=== PATIENT | male | born 1955 | race Caucasian/White ===

== ENCOUNTER 2016-12-07 18:59 | Inpatient (IN) ==
--- NOTE | 2016-12-07 19:37 | Emergency Department Note ---
Disposition Clinical Impression: Abscess, Cellulitis Disposition: Admitted As Inpatient Condition: Fair Time of Disposition: 19:58 (gil amparo) Lower Extremity Injury HPI - General Chief Complaint: ED Extremity Injury, Lower Stated Complaint: abcess to left lower leg Time Seen by Provider: 12/07/16 19:20 Source: patient Mode of arrival: ambulatory Limitations: no limitations Nursing Notes Reviewed: Yes Vital Signs Reviewed: Yes - History of Present Illness HPI Narrative: Seen 3 days ago in the emergency room for same twice of the lower leg seen last night at the local urgent care was called to the ER is to be transferred up here that the patient never arrived as a result patient now presents here to the emergency room with a red hot swollen left ankle with a large $0.50 piece purplish ecchymotic area to the medial aspect of the left ankle unable to bear weight with swelling and edema up towards the knee he has told me that he is taking Bactrim and Keflex but according to the records that Cipro and clindamycin as a result he is here for evaluation of the abscess of the lower leg which appears to be failing outpatient therapy he has pain with weightbearing denies numbness tingling has edema unable to flex at the ankle denies any knee or hip pain denies any additional complaints with further review of systems Pt Subjective Complaint: ankle injury Injury location: Left ankle (5) Mechanism of Injury: unknown Context: other (started with cellulitis of the ankle) Place: home Pain Severity: severe Pain Scale: 10 Improves with: nothing Worsens with: weight bearing, movement, palpation Associated symptoms: Reports: unable to bear weight, swelling, other (ecchymosis ) Treatments prior to arrival: dressing, other (antibiotics) - Related Data Home Medications Medication Instructions Recorded Confirmed Atenolol [Tenormin] 50 mg PO DAILY 01/09/16 12/04/16 Buspirone HCl [Buspar] 15 mg PO BID 01/09/16 12/04/16 Clopidogrel [Plavix] 75 mg PO DAILY 01/09/16 12/04/16 Dicyclomine 20 mg PO TID 01/09/16 12/04/16 Duloxetine HCl [Cymbalta] 60 mg PO DAILY 01/09/16 12/04/16 Lansoprazole [Prevacid] 30 mg PO DAILY 01/09/16 12/04/16 Lisinopril [Zestril] 40 mg PO DAILY 01/09/16 12/04/16 Warfarin [Coumadin] 2 tab PO DAILY 01/09/16 12/04/16 Montelukast [Singulair] 10 mg PO QID 12/04/16 12/04/16 Nitroglycerin [Nitrostat] 0.4 mg SL Q3-5MIN PRN 12/04/16 12/04/16 Oxycodone HCl/Acetaminophen 1 each PO QID 12/04/16 12/04/16 [Percocet 10-325 mg Tablet] Tiotropium [Spiriva] 18 mcg IH 0700 12/04/16 12/04/16 Previous Rx's Medication Instructions Recorded Ciprofloxacin [Cipro] 500 mg PO BID #20 tablet 12/04/16 Clindamycin HCl [Cleocin HCl] 150 mg PO QID #40 capsule 12/04/16 OxyCODONE/APAP 5/325 [Percocet 1 each PO Q4HR PRN #20 tablet 12/04/16 5/325 MG] Allergies Allergy/AdvReac Type Severity Reaction Status Date / Time sulfamethoxazole AdvReac Weakness Verified 12/07/16 19:12 [From Bactrim] trimethoprim [From Bactrim] AdvReac Weakness Verified 12/07/16 19:12 All systems ED: reviewed and negative except as stated. Constitutional: Denies: fever, chills, weakness Eyes: Denies: vision change ENT ED: Denies: ear pain, throat pain Cardiovascular: Denies: chest pain Respiratory: Denies: cough, dyspnea, wheezes Gastrointestinal: Denies: abdominal pain, melena Genitourinary: Denies: urgency, dysuria Musculoskeletal: Reports: joint swelling Integumentary: Reports: lesions, other (ecchymosis) Neurological: Reports: abnormal gait (due to pain). Denies: headache, weakness Psychiatric: Denies: anxiety Endocrine: Denies: fatigue Hematological/Lymphatic: Reports: easy bleeding, easy bruising (due t anticoagulation meds) Allergic/Immunologic: Denies: facial swelling Past Medical History - Past Medical History Attestation: Yes The following information was validated with the patient. Source: patient, old records reviewed, nursing notes reviewed Medical history: Reports: COPD, CVA, DVT, diabetes, GERD, hypertension, renal disease, other Surgical history: Reports: appendectomy, cancer surgery (Stomach and esophagus) , orthopedic, other (Back surgery 3), other (Tonsillectomy, right kidney surgery) Psychiatric history: Reports: no psych history - Social History Smoking Status: Current every day smoker Smokeless Tobacco Status: No Alcohol use: Reports: none Drug use: Reports: none Physical Exam - General Limitations: no limitations General appearance: alert, in no apparent distress, anxious - Head Head exam: atraumatic, normocephalic, normal inspection - Eye Eye exam: Present: normal appearance, PERRL, EOMI - ENT ENT exam: normal exam, normal oropharynx, mucous membranes moist, TM's normal bilaterally, normal external ear exam - Neck Neck exam: Present: normal inspection, full ROM, trachea midline - Chest Chest inspection: Present: normal inspection, symmetric chest wall rise - Respiratory Respiratory exam: Present: normal lung sounds bilaterally - Cardiovascular Cardiovascular exam: Present: regular rate, normal rhythm, normal heart sounds - Abdominal Exam Abdominal exam: Present: soft, Non-Tender, normal bowel sounds. Absent: mass, pulsatile mass - Expanded Upper Extremity Exam Shoulder exam: Present: normal inspection, full ROM Arm exam: Present: normal inspection, full ROM Elbow exam: Present: normal inspection, full ROM Forearm/Wrist exam: Present: normal inspection, full ROM Hand exam: Present: normal inspection, full ROM Vascular exam: Normal: capillary refill, radial pulse - Expanded Lower Extremity Exam Hip/Pelvis exam: Present: normal inspection, full ROM Upper leg exam: Present: normal inspection, full ROM 1 - Cellulitis with pitting edema of the foot to just at the ankle mortise Knee exam: Present: normal inspection, full ROM Lower leg exam: Present: normal inspection, tenderness, swelling, ecchymosis. Absent: Homans' sign Ankle exam: Present: normal inspection, tenderness, swelling, ecchymosis, other (E centimeter lesion on the inner aspect of the left ankle with partial erosion of the epidermal layer extending down into the dermal layer but the tissue still intact oozing but no active bleeding little purulent abscess is starting to develop in the within the tissue) 1 - 3cm circular abscess to the inner aspect of the lower leg Foot/toe exam: Present: normal inspection, tenderness, swelling, ecchymosis Neurovascular/Tendon exam: Present: normal capillary refill, sensory deficit ( Intact to touch but was unable to discriminate between sharp and dull due to edema range of motion in the ankle. Minimal once the ankle was drained able to fully flex the ankle dorsiflexion plantar flexion with marked improvement with the range of motion). Absent: motor deficit, tendon deficit Gait: unable to bear weight - Back Exam Back exam: Present: normal inspection, full ROM - Neurological Exam Neurological exam: Present: alert, oriented X3, CN II-XII intact - Psychiatric Psychiatric exam: Present: normal affect, normal mood - Skin Skin exam: Present: warm, dry, intact, normal color Course Course Narrative: Patient seen and examined patient was advised he needs to be hospitalized due to the seriousness of the illness laboratory data was obtained including blood cultures area was then cleansed with chlorhexidine prep with the area with chlorhexidine prep he was then anesthetized with 10 mL of 1% lidocaine a small surgical incision of approximately 2 cm was made along the long axis of the leg and a half centimeter incision both anterior and posterior direction along that laceration site then opening about 1 cm allow the large amount of purulent material approximately 40 mL's of purulent blood clotted foul-smelling material coming from within the wound expressed to approximately 60 mL stone minimal oozing from the site upon completion of the drainage patient was then asked to do for range of motion which then showed that he had almost complete range of motion back at this point with minimal discomfort the pitting edema was actually resolving fairly quickly around the ankle and tolerating discomfort much better patient had an Allevyn dressing on after packed with approximately 8 inches of iodoform gauze patient transferred to [facility] spoke with Dr. Solomon who is in agreement with clindamycin and vancomycin and at this point transfer may occur tomorrow if showing no improvement to [place] (ideally) but if unable to [place] would be second choice Vital Signs Temperature 97.1 F L 12/07/16 19:02 Pulse Rate 70 12/07/16 19:02 Respiratory Rate 20 12/07/16 19:02 Blood Pressure 141/83 12/07/16 19:02 Temperature 100.1 F H 12/07/16 21:01 Pulse Rate 71 12/07/16 21:01 Respiratory Rate 16 12/07/16 21:01 Blood Pressure 118/69 12/07/16 21:01 O2 Sat by Pulse Oximetry 94 L 12/07/16 21:01 Oxygen Delivery Oxygen Delivery Room Air Procedures - Abscess I/D Site: lower extremity Side (if applicable): left Sedation/analgesia: other (dilaudid 1mg IV) Local Anesthetic: lidocaine 1% Amount of Anesthesia Used (mL): 10 Technique: incised with #11 blade Amount of fluid: 40 (expressed to 60ml) Irrigation: Yes (saline) Packing used?: iodoform Complications: pain, bleeding Extremity Injury, Lower - MDM Narrative Medical decision making narrative: abscess and failed out pt therapy due to cipro and low dose clindamycin area according to reports and pt was cellulitis light erythema on the 8th signifigant change this past 48 hours - Medical Records Medical records reviewed: Yes I reviewed the patient's medical records. - Lab Data Lab results reviewed: Yes I reviewed the patient's lab results. Result diagrams: 12/07/16 19:57 12/07/16 19:57 Lab Results 12/07/16 12/07/16 12/07/16 Range/Units 19:57 19:57 19:57 WBC 16.2 H (4.3-11.1) K/mcL RBC 5.12 (4.19-5.50) M/mcL Hgb 14.5 (12.9-16.9) g/dL Hct 44.4 (37.5-50.1) % MCV 86.7 (83.0-100.0) fL MCH 28.3 (28.0-33.3) pg MCHC 32.7 (31.6-35.5) g/dL RDW 15.1 H (11.5-14.5) % Plt Count 328 (140-400) K/mcL MPV 10.0 (9.4-12.4) fL Immature Gran % 0.6 (0-4) % Seg Neutrophils % 64.5 % Lymphocytes % 23.0 % Monocytes % 8.9 % Eosinophils % 2.2 % Basophils % 0.8 % Neutrophils # 10.5 H (1.6-8.9) K/mcL Lymphocytes # 3.7 (0.6-4.6) K/mcL Monocytes # 1.4 H (0.0-1.3) K/mcL Eosinophils # 0.4 (0.0-0.6) K/mcL Basophils # 0.1 (0.0-0.2) K/mcL PT (9.4-12.1) Seconds INR APTT 23.3 L (26.0-36.0) Seconds VBG Lactic Acid (0.5-2.2) mmol/L Sodium 136 (136-145) mEq/L Potassium 3.9 (3.5-4.5) mEq/L Chloride 105 (98-109) mEq/L Carbon Dioxide 19 (19-29) mEq/L BUN 30 H (8-26) mg/dL Creatinine 1.61 H (0.72-1.25) mg/dL Est GFR ( Amer) 53 L (> 60) Est GFR (Non-Af Amer) 44 L (> 60) BUN/Creatinine Ratio 19 (6-26) Glucose 100 H (70-99) mg/dL Calculated Osmolality 288 (280-300) Calcium 8.9 (8.6-10.8) mg/dL Total Bilirubin 0.7 (0.2-1.2) mg/dL AST 25 (5-34) Units/L ALT 19 (0-55) Units/L Alkaline Phosphatase 115 (38-126) Units/L Serum Total Protein 8.1 (6.0-8.3) g/dL Albumin 3.3 L (3.5-5.0) g/dL Globulin 4.8 H (2.4-3.5) g/dL Albumin/Globulin Ratio 0.7 L (1.1-2.2) 12/07/16 12/07/16 Range/Units 19:57 19:57 WBC (4.3-11.1) K/mcL RBC (4.19-5.50) M/mcL Hgb (12.9-16.9) g/dL Hct (37.5-50.1) % MCV (83.0-100.0) fL MCH (28.0-33.3) pg MCHC (31.6-35.5) g/dL RDW (11.5-14.5) % Plt Count (140-400) K/mcL MPV (9.4-12.4) fL Immature Gran % (0-4) % Seg Neutrophils % % Lymphocytes % % Monocytes % % Eosinophils % % Basophils % % Neutrophils # (1.6-8.9) K/mcL Lymphocytes # (0.6-4.6) K/mcL Monocytes # (0.0-1.3) K/mcL Eosinophils # (0.0-0.6) K/mcL Basophils # (0.0-0.2) K/mcL PT 15.5 H (9.4-12.1) Seconds INR 1.4 APTT (26.0-36.0) Seconds VBG Lactic Acid 2.2 (0.5-2.2) mmol/L Sodium (136-145) mEq/L Potassium (3.5-4.5) mEq/L Chloride (98-109) mEq/L Carbon Dioxide (19-29) mEq/L BUN (8-26) mg/dL Creatinine (0.72-1.25) mg/dL Est GFR ( Amer) (> 60) Est GFR (Non-Af Amer) (> 60) BUN/Creatinine Ratio (6-26) Glucose (70-99) mg/dL Calculated Osmolality (280-300) Calcium (8.6-10.8) mg/dL Total Bilirubin (0.2-1.2) mg/dL AST (5-34) Units/L ALT (0-55) Units/L Alkaline Phosphatase (38-126) Units/L Serum Total Protein (6.0-8.3) g/dL Albumin (3.5-5.0) g/dL Globulin (2.4-3.5) g/dL Albumin/Globulin Ratio (1.1-2.2) - Radiology Data Radiology results reviewed: Yes I reviewed the patient's radiology results. Critical Care Time Critical Care Time: No
[2016-12-07] MEDS ORDERED: Vancomycin 1,000 MG in D5% in Water 250 ML IVPB ONE (19:38)
[2016-12-07] MEDS ORDERED: Clindamycin 600 MG/50 ML 600 MG/50 ML IV.SOLN IVPB STA ×2 (19:38→20:36)
[2016-12-07] MEDS ORDERED: 0.9 % Sodium Chloride 1,000 ML IVC ONE (19:38)
[2016-12-07] MEDS ORDERED: Ondansetron 4 MG/2 ML VIAL IVP ONE (19:39)
[2016-12-07] MEDS ORDERED: *HR* HYDROmorphone (PF) 1 MG/ML SYRINGE IVP ONE (19:39)
[2016-12-07 20:04] LABS: Basophils # 0.1 K/mcL (0.0-0.2); Basophils % 0.8 %; Eosinophils # 0.4 K/mcL (0.0-0.6); Eosinophils % 2.2 %; Hematocrit 44.4 % (37.5-50.1); Hemoglobin 14.5 g/dL (12.9-16.9); Immature Granulocytes % 0.6 % (0-4); Lymphocytes # 3.7 K/mcL (0.6-4.6); Mean Corpuscular HGB Conc 32.7 g/dL (31.6-35.5); Mean Corpuscular Hemoglobin 28.3 pg (28.0-33.3); Mean Corpuscular Volume 86.7 fL (83.0-100.0); Monocytes % 8.9 %; Neutrophils # 10.5 K/mcL (1.6-8.9); Platelet Count 328 K/mcL (140-400); Red Blood Count 5.12 M/mcL (4.19-5.50); Red Cell Distribution Width 15.1 % (11.5-14.5); Segmented Neutrophils % 64.5 %
[2016-12-07 20:06] LABS: Monocytes # 1.4 K/mcL (0.0-1.3)
[2016-12-07 20:09] LABS: INR 1.4; Prothrombin Time 15.5 Seconds (9.4-12.1)
[2016-12-07 20:21] LABS: Albumin 3.3 g/dL (3.5-5.0); Albumin/Globulin Ratio 0.7 (1.1-2.2); Bilirubin,Total 0.7 mg/dL (0.2-1.2); Calcium 8.9 mg/dL (8.6-10.8); Globulin 4.8 g/dL (2.4-3.5); Potassium 3.9 mEq/L (3.5-4.5); Total Protein 8.1 g/dL (6.0-8.3)
[2016-12-07] MEDS ORDERED: Ondansetron 4 MG/2 ML VIAL IVP PRN (20:36)
[2016-12-07] MEDS ORDERED: 0.9 % Sodium Chloride 1,000 ML IVC SCH (20:36)
[2016-12-07] MEDS ORDERED: D5% in Water 1,000 ML IV PRN (20:36)
[2016-12-07] MEDS ORDERED: Dextrose Gel 15 GM PO PRN ×2 (20:36)
[2016-12-07] MEDS ORDERED: Nitroglycerin 0.4 MG TAB.SUBL SL PRN (20:36)
[2016-12-07] MEDS ORDERED: Naloxone 0.4 MG/ML INJ IVP PRN (20:36)
[2016-12-07] MEDS ORDERED: *HR* Dextrose 50 % in Water (Syg) 50 ML SYRINGE IVP PRN (20:36)
[2016-12-07] MEDS: 0.9 % Sodium Chloride 1,000 ML IVC SCH ×2 (22:04→22:08)
[2016-12-07] MEDS: *HR* OxyCODONE Immed Rel 5 MG TABLET PO PRN (22:15)
[2016-12-08] MEDS: *HR* HYDROmorphone (PF) 1 MG/ML SYRINGE IVP PRN ×5 (00:57→22:04)
[2016-12-08 02:28] LABS: Basophils # 0.1 K/mcL (0.0-0.2); Basophils % 0.6 %; Eosinophils # 0.4 K/mcL (0.0-0.6); Eosinophils % 3.1 %; Hematocrit 39.6 % (37.5-50.1); Hemoglobin 12.9 g/dL (12.9-16.9); Immature Granulocytes % 0.5 % (0-4); Lymphocytes # 3.3 K/mcL (0.6-4.6); Lymphocytes % 25.1 %; Mean Corpuscular HGB Conc 32.6 g/dL (31.6-35.5); Mean Corpuscular Hemoglobin 28.1 pg (28.0-33.3); Mean Corpuscular Volume 86.3 fL (83.0-100.0); Mean Platelet Volume 9.9 fL (9.4-12.4); Monocytes # 1.2 K/mcL (0.0-1.3); Monocytes % 9.1 %; Platelet Count 268 K/mcL (140-400); Red Blood Count 4.59 M/mcL (4.19-5.50); Red Cell Distribution Width 15.2 % (11.5-14.5); Segmented Neutrophils % 61.6 %
[2016-12-08 02:34] LABS: INR 1.6; Prothrombin Time 17.7 Seconds (9.4-12.1)
[2016-12-08 02:37] LABS: Activated Partial Thrombo Time 35.9 Seconds (26.0-36.0)
[2016-12-08 02:44] LABS: BUN/Creatinine Ratio 19 (6-26); Blood Urea Nitrogen 27 mg/dL (8-26); Calcium 7.7 mg/dL (8.6-10.8); Carbon Dioxide 21 mEq/L (19-29); Chloride 106 mEq/L (98-109); Glucose 159 mg/dL (70-99); Osmolality,Calculated 290 (280-300); Potassium 3.6 mEq/L (3.5-4.5); Sodium 136 mEq/L (136-145); eGFR For African Americans > 60 (> 60); eGFR For Non-African Americans 50 (> 60)
[2016-12-08] MEDS: *HR* OxyCODONE Immed Rel 5 MG TABLET PO PRN ×3 (06:17→20:14)
[2016-12-08] MEDS: Tiotropium 18 MCG inhalation IH SCH (07:55)
[2016-12-08] MEDS ORDERED: *HR* Warfarin 5 MG TABLET PO SCH ×2 (09:00→18:00)
[2016-12-08] MEDS ORDERED: Lisinopril 20 MG TABLET PO SCH (09:00)
[2016-12-08] MEDS: Insulin LISPRO 300 UNITS/3 ML VIAL SQ SCH ×3 (09:40→17:29)
--- NOTE | 2016-12-08 13:18 | Internal Med History&Physical ---
Date of Encounter: 12/08/16 Time of Encounter: 12:30 Assessment and Plan (1) Abscess Current visit: Yes Status: Acute He will be given IV Cipro and vancomycin. CT of the leg will be done see if there is evidence of abscess. (2) CKD (chronic kidney disease) stage 3, GFR 30-59 ml/min Current visit: Yes Status: Acute His creatinine was 1.01 on 12/14/2014. Will stop Zestril and give IV fluids and recheck labs. (3) Hypertension Current visit: Yes Status: Chronic His blood pressure is now borderline low. We will discontinue atenolol and lisinopril and monitor labs and blood pressure. Qualifiers: Hypertension type: essential hypertension Qualified Code(s): I10 - Essential (primary) hypertension (4) COPD (chronic obstructive pulmonary disease) Current visit: Yes Status: Acute Continue Singulair. We will give albuterol nebs when necessary Qualifiers: COPD type: unspecified COPD Qualified Code(s): J44.9 - Chronic obstructive pulmonary disease, unspecified (5) Hypomagnesemia Current visit: Yes Status: Acute Magnesium level was low at 1.7 on 09/24/2014. We will recheck in a.m. (6) Low TSH level Current visit: Yes Status: Acute TSH was low at 0.251 on 01/09/2016. We will recheck in a.m. Internal Medicine - H&P: HPI Chief complaint: Left leg ulcer Admitted From: Home Plans for Post Hospital Care: Home History of present illness: Mr. Vazquez is a 61 year old male who came to the emergency room stating he had onset of soreness and redness in his left lower medial leg area approximately 1 week ago. He came to emergency room on December 04 and received prescriptions for Cipro and Cleocin for a 10 day course. Despite using the antibiotics his symptoms worsened so he came back to emergency room the evening of December 07. He was felt to have an abscess present. He had incision and drainage with packing done and was admitted to [facility] floor for IV antibiotics and ongoing care needs. He states he was diagnosed with cellulitis at the same site approximately 4 months ago and received antibiotics which resolved the infection. He denies any injury to the skin or ankle otherwise. His musk skeletal history is significant for DJD. He has degenerative disc disease and had surgical insertion of 2 rods in his back but denies a diagnosis of scoliosis. He uses a cane for ambulation. Denies gout or other bone joint or muscle disorders. Past Med Surg Social Fam HX - Past Medical History Medical history: COPD, CVA, DVT, diabetes, GERD, hypertension, renal disease, other Psychiatric history: no psych history - Past Surgical History Surgical History: appendectomy, cancer surgery, orthopedic, other, other - Social History Smoking Status: Current every day smoker Smokeless Tobacco Status: No Alcohol use: none Drug use: none Internal Medicine - H&P: Meds Atenolol [Tenormin] 50 mg PO DAILY 01/09/16 [History] Buspirone HCl [Buspar] 15 mg PO BID 01/09/16 [History] Clopidogrel [Plavix] 75 mg PO DAILY 01/09/16 [History] Dicyclomine 20 mg PO TID 01/09/16 [History] Duloxetine HCl [Cymbalta] 60 mg PO DAILY 01/09/16 [History] Lansoprazole [Prevacid] 30 mg PO DAILY 01/09/16 [History] Lisinopril [Zestril] 40 mg PO DAILY 01/09/16 [History] Warfarin [Coumadin] 2 tab PO DAILY 01/09/16 [History] Ciprofloxacin [Cipro] 500 mg PO BID #20 tablet 12/04/16 [Rx] Clindamycin HCl [Cleocin HCl] 150 mg PO QID #40 capsule 12/04/16 [Rx] Montelukast [Singulair] 10 mg PO QID 12/04/16 [History] Nitroglycerin [Nitrostat] 0.4 mg SL Q3-5MIN PRN 12/04/16 [History] OxyCODONE/APAP 5/325 [Percocet 5/325 MG] 1 each PO Q4HR PRN #20 tablet 12/04/16 [Rx] Oxycodone HCl/Acetaminophen [Percocet 10-325 mg Tablet] 1 each PO QID 12/04/16 [ History] Tiotropium [Spiriva] 18 mcg IH 0700 12/04/16 [History] Allergies sulfamethoxazole [From Bactrim] Adverse Reaction (Verified 12/07/16 19:12) Weakness patient states it is bad for his kidney trimethoprim [From Bactrim] Adverse Reaction (Verified 12/07/16 19:12) Weakness patient states it is bad for his kidney All Systems PM: A 10-system review of systems was performed and is negative for pertinent findings except as documented above in the HPI. Review of systems: Gen.: He states his weight has been stable past few months Cardiovascular: He has history of hypertension. He denies [place] heart failure angina or pulmonary embolus. He states he does have a "leaky valve" but does not know details. He follows with a [facility] in [place]. He states he was diagnosed with a right leg DVT in 2013 and has been maintained on Coumadin. Respiratory: He has smoked since age 16 up to 6 packs per day. He has had serial chest CT procedures to follow a "lung spot". His most recent chest CT was approximately 3 months ago per his report. Has a diagnosis of COPD and wears oxygen at bedtime : He had right renal cell cancer diagnosed in 2011 and underwent partial nephrectomy. He states he is cancer free at this time. Lab work indicates he likely has chronic kidney disease but he denied knowledge of this. 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 He denies seizures. He states he had inadvertent injury to his right sciatic nerve during back surgery several years ago leaving him with decreased leg strength. Endocrine: He denies diabetes thyroid disease or hyperlipidemia Hematology/oncology: He had renal cell cancer as mentioned. He has no other malignancies and denies anemia or other blood disorders Psychiatric: He has a diagnosis of depression denies other mental health issues Musculoskeletal: As per history of present illness. - Constitutional Vitals: Temp Pulse Resp BP Pulse Ox 98.2 F 72 16 115/58 96 12/08/16 10:30 12/08/16 10:30 12/08/16 10:30 12/08/16 10:30 12/08/16 10:30 Exam: Gen.: He is a well-developed well-nourished male who appears in no severe distress at present time. HEENT: Head is atraumatic and normocephalic. Eyes: EOMI. There is no scleral icterus. Mouth: Mucosa is moist. Neck: Supple and nontender. There is no thyromegaly or adenopathy noted. Heart: Regular without murmurs gallops or ectopics. Lungs: He has diminished breath sounds diffusely. No wheezes or crackles are heard. Abdomen: Soft and nontender. No masses or guarding are noted. Extremities: He has minimal DJD changes of his hands. His right leg is unremarkable. The left leg shows erythema in the lower half of the lower leg into the ankle and upper foot area. There is packing in the incised area just superior and anterior to the left medial malleolus. There significant oozing of blood from this area. Neurologic: Mental status: He is talkative and a good historian. Cranial nerves : Smile is symmetric. Forehead wrinkles bilaterally. Tongue protrudes midline. EOMI. Motor: There is no pronator drift. Cerebellar: Finger to nose is intact bilaterally. Skin: Warm and dry Internal Med - H&P Results - Labs CBC & Chem 7: 12/08/16 02:20 12/08/16 02:20 Labs: Short CBC 12/08/16 Range/Units 02:20 WBC 13.0 H (4.3-11.1) K/mcL Hgb 12.9 D (12.9-16.9) g/dL Hct 39.6 (37.5-50.1) % Plt Count 268 (140-400) K/mcL Neutrophils # 8.0 (1.6-8.9) K/mcL BMP 12/08/16 02:20 Sodium 136 Potassium 3.6 Chloride 106 Carbon Dioxide 21 BUN 27 H Creatinine 1.44 H Glucose 159 H Calcium 7.7 L - Impressions ITS Impressions Ankle X-Ray 12/07/16 20:55 IMPRESSION: Diffuse soft tissue swelling and edema of the left ankle with focal ulceration just above the level of the medial malleolus. Subcutaneous air above the level of ulceration suspected to represent developing abscess. D/ / Kishore Delgado MD / Kishore Delgado MD Interpreting Provider: Kishore Delgado MD
[2016-12-08] MEDS ORDERED: Vancomycin 1,500 MG in D5% in Water 250 ML IVPB ONE (14:00)
[2016-12-08] MEDS: 0.45 % Sodium Chloride w/KCl 20 MEQ/1,000 ML MLS IVC SCH (17:24)
[2016-12-08] MEDS: *HR* Warfarin 5 MG TABLET PO SCH (17:27)
[2016-12-08] MEDS: Lactobacillus 1 EACH CAP.SPRINK PO SCH (20:13)
[2016-12-09] MEDS: *HR* HYDROmorphone (PF) 1 MG/ML SYRINGE IVP PRN ×5 (03:08→20:19)
[2016-12-09 05:40] LABS: Basophils # 0.1 K/mcL (0.0-0.2); Basophils % 1.3 %; Eosinophils # 0.4 K/mcL (0.0-0.6); Eosinophils % 5.7 %; Hematocrit 35.7 % (37.5-50.1); Hemoglobin 11.5 g/dL (12.9-16.9); Immature Granulocytes % 0.8 % (0-4); Lymphocytes # 2.3 K/mcL (0.6-4.6); Lymphocytes % 36.9 %; Mean Corpuscular HGB Conc 32.2 g/dL (31.6-35.5); Mean Corpuscular Hemoglobin 28.1 pg (28.0-33.3); Mean Corpuscular Volume 87.3 fL (83.0-100.0); Monocytes # 0.7 K/mcL (0.0-1.3); Monocytes % 11.1 %; Neutrophils # 2.7 K/mcL (1.6-8.9); Platelet Count 209 K/mcL (140-400); Red Blood Count 4.09 M/mcL (4.19-5.50); Red Cell Distribution Width 15.4 % (11.5-14.5); Segmented Neutrophils % 44.2 %
[2016-12-09 05:50] LABS: INR 1.4; Prothrombin Time 15.4 Seconds (9.4-12.1)
[2016-12-09] MEDS: 0.45 % Sodium Chloride w/KCl 20 MEQ/1,000 ML MLS IVC SCH ×2 (06:01→20:25)
[2016-12-09 06:03] LABS: BUN/Creatinine Ratio 15 (6-26); Blood Urea Nitrogen 19 mg/dL (8-26); Calcium 7.7 mg/dL (8.6-10.8); Carbon Dioxide 22 mEq/L (19-29); Chloride 111 mEq/L (98-109); Glucose 126 mg/dL (70-99); Magnesium 1.7 mg/dL (1.6-2.6); Osmolality,Calculated 292 (280-300); Sodium 139 mEq/L (136-145); eGFR For African Americans > 60 (> 60); eGFR For Non-African Americans > 60 (> 60)
[2016-12-09] MEDS: Tiotropium 18 MCG inhalation IH SCH (07:55)
[2016-12-09] MEDS: Insulin LISPRO 300 UNITS/3 ML VIAL SQ SCH ×3 (07:59→15:36)
[2016-12-09] MEDS: Lactobacillus 1 EACH CAP.SPRINK PO SCH ×2 (08:00→20:25)
--- NOTE | 2016-12-09 12:08 | Internal Med Progress Note ---
Date of Encounter: 12/09/16 Time of Encounter: 11:55 - Assessment and plan (1) Abscess Current Visit: Yes Status: Acute Assessment and plan: December 09. Continue IV clindamycin and vancomycin (2) CKD (chronic kidney disease) stage 3, GFR 30-59 ml/min Current Visit: Yes Status: Acute Assessment and plan: December 09. Continue IV fluids and remain off Zestril. (3) Hypertension Current Visit: Yes Status: Chronic Assessment and plan: December 09. Remain off lisinopril and atenolol and monitor blood pressures. Qualifiers: Hypertension type: essential hypertension Qualified Code(s): I10 - Essential (primary) hypertension (4) COPD (chronic obstructive pulmonary disease) Current Visit: Yes Status: Acute Assessment and plan: December 09. Continue Singulair and prn albuterol nebs Qualifiers: COPD type: unspecified COPD Qualified Code(s): J44.9 - Chronic obstructive pulmonary disease, unspecified - Subjective Interval history: December 09. He has no new complaints - Constitutional Vitals: Temp Pulse Resp BP Pulse Ox 98.2 F 64 16 118/64 96 12/09/16 10:23 12/09/16 10:23 12/09/16 10:23 12/09/16 10:23 12/09/16 10:23 Exam: His left lower leg shows improvement in the erythema. There is a gauze bandage covering the wound which I did not remove. The edema is minimally improved. I reviewed his medications, lab results, and CT report. Internal Medicine: Result - Labs CBC & Chem 7: 12/09/16 05:04 12/09/16 05:04 Labs: Short CBC 12/09/16 Range/Units 05:04 WBC 6.1 D (4.3-11.1) K/mcL Hgb 11.5 L (12.9-16.9) g/dL Hct 35.7 L (37.5-50.1) % Plt Count 209 (140-400) K/mcL Neutrophils # 2.7 (1.6-8.9) K/mcL BMP 12/09/16 05:04 Sodium 139 Potassium 4.0 Chloride 111 H Carbon Dioxide 22 BUN 19 Creatinine 1.23 Glucose 126 H Calcium 7.7 L - ABG Interpretation ABG results: PT/INR, D-dimer PT 15.4 Seconds (9.4-12.1) H 12/09/16 05:04 - Impressions Impressions Lower Extremity CT 12/08/16 13:15 IMPRESSION: 1. Gas in the soft tissues medial to the distal tibia compatible with the given history of recent incision and drainage. Diffuse subcutaneous fat stranding and skin thickening compatible cellulitis. No well-defined drainable fluid collection. 2. No acute osseous abnormality or evidence of osteomyelitis. D/ / Pedro Coleman MD / Pedro Coleman MD Interpreting Provider: Pedro Coleman MD Consult Discharge Plan - Plan Referrals: NO,PCP [Primary Care Provider] - 1 week
[2016-12-09] MEDS ORDERED: Vancomycin 1,250 MG in D5% in Water 250 ML IVPB SCH (14:00)
[2016-12-09] MEDS: *HR* Warfarin 5 MG TABLET PO SCH (17:59)
[2016-12-10] MEDS: *HR* HYDROmorphone (PF) 1 MG/ML SYRINGE IVP PRN ×5 (00:54→15:50)
[2016-12-10] MEDS: Insulin LISPRO 300 UNITS/3 ML VIAL SQ SCH ×3 (07:33→16:09)
[2016-12-10] MEDS: Tiotropium 18 MCG inhalation IH SCH (09:12)
[2016-12-10] MEDS: 0.45 % Sodium Chloride w/KCl 20 MEQ/1,000 ML MLS IVC SCH (10:16)
[2016-12-10] MEDS: Lactobacillus 1 EACH CAP.SPRINK PO SCH ×2 (10:17→19:57)
[2016-12-10] MEDS ORDERED: Aminoglycoside Consult 1 EACH MC ONE (11:00)
--- NOTE | 2016-12-10 12:06 | Internal Med Progress Note ---
Date of Encounter: 12/10/16 Time of Encounter: 11:50 - Assessment and plan (1) Abscess Current Visit: Yes Status: Acute Assessment and plan: December 09. Continue IV clindamycin and vancomycin December 10. Anticipate continuing IV antibiotics until December 12 then discharge on oral antibiotics (2) CKD (chronic kidney disease) stage 3, GFR 30-59 ml/min Current Visit: Yes Status: Acute Assessment and plan: December 09. Continue IV fluids and remain off Zestril. December 10. Creatinine has decreased to 1.23 with estimated GFR now greater than 60. Continue present regimen. (3) Hypertension Current Visit: Yes Status: Chronic Assessment and plan: December 09. Remain off lisinopril and atenolol and monitor blood pressures. December 10. Remain off lisinopril and atenolol. His blood pressures are drifting upward but heart rate is still approximately 60/m. Qualifiers: Hypertension type: essential hypertension Qualified Code(s): I10 - Essential (primary) hypertension (4) COPD (chronic obstructive pulmonary disease) Current Visit: Yes Status: Acute Assessment and plan: December 09. Continue Singulair and prn albuterol nebs Qualifiers: COPD type: unspecified COPD Qualified Code(s): J44.9 - Chronic obstructive pulmonary disease, unspecified - Subjective Interval history: December 09. He has no new complaints December 10. He has no new complaints. - Constitutional Vitals: Temp Pulse Resp BP Pulse Ox 98.1 F 65 18 149/78 98 12/10/16 11:19 12/10/16 11:19 12/10/16 11:19 12/10/16 11:19 12/10/16 09:40 Exam: There is significantly less erythema of the leg. He still has 1+ edema of the left leg. There is no lymphangitic streaking. I reviewed his medications and lab results. Internal Medicine: Result - Labs CBC & Chem 7: 12/09/16 05:04 12/09/16 05:04 - ABG Interpretation ABG results: PT/INR, D-dimer PT 15.4 Seconds (9.4-12.1) H 12/09/16 05:04 Consult Discharge Plan - Plan Referrals: NO,PCP [Primary Care Provider] - 1 week
[2016-12-10] MEDS ORDERED: Vancomycin 1,250 MG in D5% in Water 250 ML IVPB SCH (13:01)
[2016-12-10] MEDS: Vancomycin 750 MG in D5% in Water 250 ML IVPB SCH (14:40)
[2016-12-10] MEDS ORDERED: Vancomycin 1,000 MG in D5% in Water 250 ML IVPB SCH (18:00)
[2016-12-10] MEDS: *HR* Warfarin 5 MG TABLET PO SCH (18:18)
[2016-12-11] MEDS: *HR* HYDROmorphone (PF) 1 MG/ML SYRINGE IVP PRN ×5 (00:52→20:10)
[2016-12-11] MEDS: Vancomycin 750 MG in D5% in Water 250 ML IVPB SCH ×2 (00:52→15:11)
[2016-12-11] MEDS: Lactobacillus 1 EACH CAP.SPRINK PO SCH ×2 (08:01→20:09)
[2016-12-11] MEDS: Insulin LISPRO 300 UNITS/3 ML VIAL SQ SCH ×3 (08:10→16:51)
[2016-12-11] MEDS: Tiotropium 18 MCG inhalation IH SCH (08:42)
--- NOTE | 2016-12-11 11:57 | Internal Med Progress Note ---
Date of Encounter: 12/11/16 Time of Encounter: 11:50 - Assessment and plan (1) Abscess Current Visit: Yes Status: Acute Assessment and plan: December 09. Continue IV clindamycin and vancomycin December 10. Anticipate continuing IV antibiotics until December 12 then discharge on oral antibiotics December 11. Anticipate discharge home tomorrow on oral antibiotics (2) CKD (chronic kidney disease) stage 3, GFR 30-59 ml/min Current Visit: Yes Status: Acute Assessment and plan: December 09. Continue IV fluids and remain off Zestril. December 10. Creatinine has decreased to 1.23 with estimated GFR now greater than 60. Continue present regimen. December 11. We will recheck labs in a.m. (3) Hypertension Current Visit: Yes Status: Chronic Assessment and plan: December 09. Remain off lisinopril and atenolol and monitor blood pressures. December 10. Remain off lisinopril and atenolol. His blood pressures are drifting upward but heart rate is still approximately 60/m. Qualifiers: Hypertension type: essential hypertension Qualified Code(s): I10 - Essential (primary) hypertension (4) COPD (chronic obstructive pulmonary disease) Current Visit: Yes Status: Acute Assessment and plan: December 09. Continue Singulair and prn albuterol nebs Qualifiers: COPD type: unspecified COPD Qualified Code(s): J44.9 - Chronic obstructive pulmonary disease, unspecified - Subjective Interval history: December 09. He has no new complaints December 10. He has no new complaints. December 11. He has no new complaints. He states his left ankle hurts when he bears weight. - Constitutional Vitals: Temp Pulse Resp BP Pulse Ox 98.7 F 63 15 149/85 99 12/11/16 07:15 12/11/16 07:15 12/11/16 08:44 12/11/16 07:15 12/11/16 08:44 Exam: He is resting comfortably in bed and appears in no acute distress. He has continuing improvement in his edema and erythema. Reviewed his medications and lab results. Internal Medicine: Result - Labs CBC & Chem 7: 12/09/16 05:04 12/09/16 05:04 - ABG Interpretation ABG results: PT/INR, D-dimer PT 15.4 Seconds (9.4-12.1) H 12/09/16 05:04 Consult Discharge Plan - Plan Referrals: NO,PCP [Primary Care Provider] - 1 week
[2016-12-11] MEDS: *HR* Warfarin 5 MG TABLET PO SCH (17:05)
[2016-12-12] MEDS: *HR* HYDROmorphone (PF) 1 MG/ML SYRINGE IVP PRN ×3 (00:22→09:21)
[2016-12-12] MEDS: Vancomycin 750 MG in D5% in Water 250 ML IVPB SCH (00:22)
[2016-12-12 06:23] LABS: Basophils # 0.1 K/mcL (0.0-0.2); Basophils % 1.8 %; Eosinophils # 0.3 K/mcL (0.0-0.6); Eosinophils % 4.8 %; Hematocrit 37.8 % (37.5-50.1); Hemoglobin 12.3 g/dL (12.9-16.9); Immature Granulocytes % 0.4 % (0-4); Lymphocytes % 30.3 %; Mean Corpuscular HGB Conc 32.5 g/dL (31.6-35.5); Mean Corpuscular Hemoglobin 27.9 pg (28.0-33.3); Mean Corpuscular Volume 85.7 fL (83.0-100.0); Mean Platelet Volume 9.6 fL (9.4-12.4); Monocytes # 0.8 K/mcL (0.0-1.3); Monocytes % 11.6 %; Neutrophils # 3.4 K/mcL (1.6-8.9); Platelet Count 253 K/mcL (140-400); Red Blood Count 4.41 M/mcL (4.19-5.50); Red Cell Distribution Width 14.7 % (11.5-14.5); Segmented Neutrophils % 51.1 %
[2016-12-12 06:27] LABS: INR 1.1
[2016-12-12 06:37] LABS: BUN/Creatinine Ratio 11 (6-26); Blood Urea Nitrogen 13 mg/dL (8-26); Calcium 8.8 mg/dL (8.6-10.8); Carbon Dioxide 26 mEq/L (19-29); Chloride 107 mEq/L (98-109); Glucose 107 mg/dL (70-99); Osmolality,Calculated 291 (280-300); Potassium 4.2 mEq/L (3.5-4.5); Sodium 140 mEq/L (136-145); eGFR For African Americans > 60 (> 60); eGFR For Non-African Americans > 60 (> 60)
[2016-12-12 07:05] VITALS: BP 145/78
[2016-12-12] MEDS: Insulin LISPRO 300 UNITS/3 ML VIAL SQ SCH (07:28)
[2016-12-12] MEDS: Tiotropium 18 MCG inhalation IH SCH (07:43)
[2016-12-12] MEDS: Lactobacillus 1 EACH CAP.SPRINK PO SCH (09:27)
--- NOTE | 2016-12-12 09:53 | Discharge Summary ---
Date of Encounter: 12/12/16 Time of Encounter: 09:35 - Discharge Diagnosis (1) Abscess Priority: Primary Status: Acute (2) CKD (chronic kidney disease) stage 3, GFR 30-59 ml/min Priority: Secondary Status: Acute (3) Hypertension Priority: Secondary Status: Chronic Qualifiers: Hypertension type: essential hypertension Qualified Code(s): I10 - Essential (primary) hypertension (4) COPD (chronic obstructive pulmonary disease) Priority: Secondary Status: Chronic Qualifiers: COPD type: unspecified COPD Qualified Code(s): J44.9 - Chronic obstructive pulmonary disease, unspecified - Discharge Medications Prescriptions: Doxycycline 100 mg PO BID #10 capsule Lactobacillus [Culturelle] 1 each PO BID #10 cap.sprink Metoprolol XL (24 HR) Succ [Toprol XL] 25 mg PO DAILY #30 tab.er.24h Home Medications: Buspirone HCl [Buspar] 15 mg PO BID 01/09/16 [History] Clopidogrel [Plavix] 75 mg PO DAILY 01/09/16 [History] Dicyclomine 20 mg PO TID 01/09/16 [History] Duloxetine HCl [Cymbalta] 60 mg PO DAILY 01/09/16 [History] Lansoprazole [Prevacid] 30 mg PO DAILY 01/09/16 [History] Warfarin [Coumadin] 2 tab PO DAILY 01/09/16 [History] Clindamycin HCl [Cleocin HCl] 150 mg PO QID #40 capsule 12/04/16 [Rx] Nitroglycerin [Nitrostat] 0.4 mg SL Q3-5MIN PRN 12/04/16 [History] OxyCODONE/APAP 5/325 [Percocet 5/325 MG] 1 each PO Q4HR PRN #20 tablet 12/04/16 [Rx] Oxycodone HCl/Acetaminophen [Percocet 10-325 mg Tablet] 1 each PO QID 12/04/16 [ History] Tiotropium [Spiriva] 18 mcg IH 0700 12/04/16 [History] Doxycycline 100 mg PO BID #10 capsule 12/12/16 [Rx] Lactobacillus [Culturelle] 1 each PO BID #10 cap.sprink 12/12/16 [Rx] Metoprolol XL (24 HR) Succ [Toprol XL] 25 mg PO DAILY #30 tab.er.24h 12/12/16 [ Rx] Montelukast [Singulair] 10 mg PO QPM tablet 12/12/16 [Rx] Allergies/Adverse Reactions: Allergies sulfamethoxazole [From Bactrim] Adverse Reaction (Verified 12/07/16 19:12) Weakness patient states it is bad for his kidney trimethoprim [From Bactrim] Adverse Reaction (Verified 12/07/16 19:12) Weakness patient states it is bad for his kidney Date of admission: 12/10/16 12:31 Primary care physician: Jim Helton M.D. - Patient Status Disposition: Home Health Service Condition: Fair Overall status at discharge: patient is progressing back to baseline - Discharge Instructions Follow Up With: NO,PCP [Primary Care Provider] - 1 week - Diet and Activity Activity: resume usual activities as tolerated Diet: advance to your usual diet Hospital course: Mr. Vazquez is a 61 year old male who came to the emergency room stating he had onset of soreness and redness in his left lower medial leg area approximately 1 week ago. He came to emergency room on December 04 and received prescriptions for Cipro and Cleocin for a 10 day course. Despite using the antibiotics his symptoms worsened so he came back to emergency room the evening of December 07. He was felt to have an abscess present. He had incision and drainage with and was admitted to [facility] for IV antibiotics and ongoing care needs. Initial orders were written by the emergency room physician. I saw him on December 08 and performed a history and physical. He was started on IV vancomycin. Daily packing was done to the wound. A CT of the leg showed no evidence of abscess or osteomyelitis. There was gradual improvement of the erythema of the leg and decreased pain. He remained afebrile during his hospital stay. On December 12 he felt stable for discharge home which I felt was reasonable. He will continue with oral antibiotics and probiotic for 5 additional days after discharge. Home health nurses will continue to pack the wound until sufficiently healed. Lisinopril and atenolol were discontinued on admission because of borderline hypotension. His blood pressure gradually citlali and he will be given Toprol-XL 25 mg daily at discharge. He will remain off lisinopril and atenolol. His azotemia improved significantly with BUN and creatinine being 13 and 1.15 respectively on the day of discharge with estimated GFR greater than 60. There were no new problems and on December 12 he was discharged home. He will follow with his primary care provider within one week. - Time Spent with Patient Total time spent providing and/or coordinating discharge services: - Constitutional Vitals: Temp Pulse Resp BP Pulse Ox 97.6 F 73 14 145/78 92 L 12/12/16 07:01 12/12/16 07:01 12/12/16 07:43 12/12/16 07:01 12/12/16 07:43
--- NOTE | 2016-12-12 10:01 | Physician Discharge Referral ---
Home Health/Hosp Referral Info Transfer to: Home Health Attending Provider: Juanito Provider in Charge Post Discharge: PCP (Jim Helton M.D.) - Diagnosis (1) Abscess Priority: Primary Status: Acute (2) CKD (chronic kidney disease) stage 3, GFR 30-59 ml/min Priority: Secondary Status: Acute (3) Hypertension Priority: Secondary Status: Chronic (4) COPD (chronic obstructive pulmonary disease) Priority: Secondary Status: Chronic - Respiratory Orders Smoking Cessation: Smoking cessation has been advised. For more information, call the [employer] Tobacco Quit Line at 0-195-IIWM-NOW. - Dressing/Wound Care Type of Dressing/Treatments w/Frequency: Daily packing and covering dressing to left lower leg abscess site until sufficiently healed - Diet/Nutrition Diet/Nutrition Orders: Regular - Activity Activity Orders: Up ad irene - Services Needed Following services are medically necessary services: Nursing, Home Health Aide, Physical Therapy, Occupational Therapy - Transfer Medications Prescriptions: Doxycycline 100 mg PO BID #10 capsule Lactobacillus [Culturelle] 1 each PO BID #10 cap.sprink Metoprolol XL (24 HR) Succ [Toprol XL] 25 mg PO DAILY #30 tab.er.24h Home Medications: Buspirone HCl [Buspar] 15 mg PO BID 01/09/16 [History] Clopidogrel [Plavix] 75 mg PO DAILY 01/09/16 [History] Dicyclomine 20 mg PO TID 01/09/16 [History] Duloxetine HCl [Cymbalta] 60 mg PO DAILY 01/09/16 [History] Lansoprazole [Prevacid] 30 mg PO DAILY 01/09/16 [History] Warfarin [Coumadin] 2 tab PO DAILY 01/09/16 [History] Clindamycin HCl [Cleocin HCl] 150 mg PO QID #40 capsule 12/04/16 [Rx] Nitroglycerin [Nitrostat] 0.4 mg SL Q3-5MIN PRN 12/04/16 [History] OxyCODONE/APAP 5/325 [Percocet 5/325 MG] 1 each PO Q4HR PRN #20 tablet 12/04/16 [Rx] Oxycodone HCl/Acetaminophen [Percocet 10-325 mg Tablet] 1 each PO QID 12/04/16 [ History] Tiotropium [Spiriva] 18 mcg IH 0700 12/04/16 [History] Doxycycline 100 mg PO BID #10 capsule 12/12/16 [Rx] Lactobacillus [Culturelle] 1 each PO BID #10 cap.sprink 12/12/16 [Rx] Metoprolol XL (24 HR) Succ [Toprol XL] 25 mg PO DAILY #30 tab.er.24h 12/12/16 [ Rx] Montelukast [Singulair] 10 mg PO QPM tablet 12/12/16 [Rx] Allergies/Adverse Reactions: Allergies sulfamethoxazole [From Bactrim] Adverse Reaction (Verified 12/07/16 19:12) Weakness patient states it is bad for his kidney trimethoprim [From Bactrim] Adverse Reaction (Verified 12/07/16 19:12) Weakness patient states it is bad for his kidney Certification: Further, I certify that my clinical findings support that this patient is homebound (i.e. absences from home require considerable and taxing effort and are for medical reasons or hinduism services or infrequently or short duration when for other reasons) because: Homebound Reason: Leaving home requires considerable and taxing effort due to condition (CVA with impaired mobility, leg abscess) Attestation: My signature below is to certify that this patient is under my care and that I, or nurse practitioner, or a physician's visitor services assistant working with me, has a face-to -face encounter with this patient.
[2016-12-12] MEDS ORDERED: FLU VACC QS2016-17 36MOS UP/PF 0.5 ML SYRINGE IM ONE (10:24)
== END 2016-12-12 10:47 | disposition home health service (06) | DRG 603 ==
LOC: INPPIK 18:59 → EMEROOPIK 18:59 → INPPIK 20:41
PROVIDERS: ADMIT Internal Medicine; ATTEND Internal Medicine